=== PATIENT | female | born 1940 | race Caucasian/White ===

== ENCOUNTER 2019-02-19 15:51 | Outpatient (REF) | payer MEDICARE, MEDICAID, SELFPAY ==
[2019-02-19 20:31] LABS: Abs Immature Grans 0.01 k/cumm (0.0-0.09); Absolute Basophil Count 0.06 k/cumm (0.0-0.2); Absolute Eosinophil Count 0.38 k/cumm (0.0-0.7); Absolute Lymphocyte Count 2.52 k/cumm (1.2-3.4); Absolute Neutrophil Count 4.17 k/cumm (1.2-6.7); Basophils % 0.7; Eosinophils % 4.7; HCT 41.2 % (36.0-46.0); Immature Grans % 0.1; Lymphocytes % 31.3; Mean Corpuscular Hemoglobin 33.2 pg (27.0-33.0); Mean Corpuscular Volume 97.6 fL (80-95); Mean Platelet Volume 10.7 fL (8.0-11.0); Monocytes % 11.2; Platelet Count 247 x1000/uL (130-400); RBC 4.22 m/cumm (4.00-5.20); RBC Distribution Width 12.3 % (11.7-14.6); White Blood Cell Count 8.04 k/cumm (4.4-10.8)
[2019-02-19 20:46] LABS: Anion Gap 11.7 mmol/L (3-11); BUN 10 mg/dL (7-18); CO2 26.3 mmol/L (21.0-32.0); Calcium 8.4 mg/dL (8.5-10.1); Chloride 106 mmol/L (98-107); Glucose 98 mg/dL (70-100); Potassium 4.1 mmol/L (3.5-5.1); Sodium 144 mmol/L (136-145)
== END 2019-02-19 16:11 ==
LOC: NCHCN 15:51
PROVIDERS: Visit Provider Nurse Practitioner Family
DX: Z01.818 Encounter for other preprocedural examination (principal); Z01.812 Encounter for preprocedural laboratory examination
CPT/HCPCS: 80048; 85025

== ENCOUNTER 2019-05-12 16:45 | Outpatient (REF) | payer MEDICARE, MEDICAID, SELFPAY ==
[2019-05-12 20:42] LABS: HDL Cholesterol 53 mg/dL (40-60); LDL CHOLESTEROL 92 mg/dL (<100)
== END 2019-05-12 17:05 ==
LOC: NCHCN 16:45
PROVIDERS: Visit Provider Nurse Practitioner Family
DX: E78.5 Hyperlipidemia, unspecified (principal)
CPT/HCPCS: 83721; 83718

== ENCOUNTER 2019-11-06 14:43 | Outpatient (REF) | payer MEDICARE, MEDICAID, SELFPAY ==
[2019-11-06 19:23] LABS: Bacteria Few HPF (Negative); C & S Indicated? C&S Done As Ordered; Casts Negative LPF (Negative); Crystals Negative HPF (Negative); Epithelial Cells Negative HPF (Negative); Mucus Negative (Negative); Other Cells Negative (Negative); RBC Negative HPF (0-2)
== END 2019-11-06 15:03 ==
LOC: NCHCN 14:43
PROVIDERS: PCP Nurse Practitioner Family; Visit Provider Nurse Practitioner Family
DX: M54.9 Dorsalgia, unspecified (principal)
CPT/HCPCS: 81015; 87086

== ENCOUNTER 2019-11-26 16:51 | Outpatient (REF) | payer MEDICARE, MEDICAID, SELFPAY ==
[2019-11-26 19:00] LABS: Anion Gap 6.3 mmol/L (3-11); BUN 13 mg/dL (7-18); CO2 31.7 mmol/L (21.0-32.0); CREATININE 0.77 mg/dL (0.55-1.02); Calculated LDL 89 mg/dL (<100); Chloride 103 mmol/L (98-107); Cholesterol 180 mg/dL (<200); Glucose 123 mg/dL (74-106); HDL Cholesterol 61 mg/dL (40-60); Potassium 4.2 mmol/L (3.5-5.1); Sodium 141 mmol/L (136-145); Triglyceride 153 mg/dL (<150)
[2019-11-26 19:27] LABS: Creatine Kinase 99 U/L (26-192)
[2019-11-26 19:40] LABS: HCT 40.7 % (36.0-46.0); HGB 13.7 g/dL (12.0-15.5); Mean Corp. HGB Concentration 33.7 g/dL (32.0-36.0); Mean Corpuscular Hemoglobin 33.3 pg (27.0-33.0); Mean Platelet Volume 10.2 fL (8.0-11.0); Platelet Count 323 x1000/uL (130-400); RBC 4.11 m/cumm (4.00-5.20); RBC Distribution Width 13.4 % (11.7-14.6); White Blood Cell Count 8.92 k/cumm (4.4-10.8)
== END 2019-11-26 17:11 ==
LOC: NCHCN 16:51
PROVIDERS: PCP Nurse Practitioner Family; Visit Provider Nurse Practitioner Family
DX: I10 Essential (primary) hypertension (principal); E78.5 Hyperlipidemia, unspecified; J44.9 Chronic obstructive pulmonary disease, unspecified
CPT/HCPCS: 80048; 80061; 82550; 85027

== ENCOUNTER → 2019-12-29 09:01 | Outpatient (BNVA) | payer MEDICARE, MEDICAID, SELFPAY | PROVIDERS: PCP Nurse Practitioner Family; Referring Provider Nurse Practitioner Family; Visit Provider Student in an Organized Health Care Education/Training Program | DX: M20.12 Hallux valgus (acquired), left foot (principal); L84 Corns and callosities; I10 Essential (primary) hypertension; J44.9 Chronic obstructive pulmonary disease, unspecified | CPT/HCPCS: 11055; 99213 ==

== ENCOUNTER 2020-01-12 16:52 | Outpatient (REF) | payer MEDICARE, MEDICAID, SELFPAY ==
[2020-01-12 20:23] LABS: Iron 53 ug/dL (50-170)
[2020-01-12 20:36] LABS: Ferritin 87 ng/mL (8-252); TSH (W/Ref FT4) 0.45 uIU/mL (0.36-3.74)
== END 2020-01-12 17:12 ==
LOC: NCHCN 16:52
PROVIDERS: PCP Nurse Practitioner Family; Visit Provider Nurse Practitioner Family
DX: I10 Essential (primary) hypertension (principal); L65.9 Nonscarring hair loss, unspecified; M20.10 Hallux valgus (acquired), unspecified foot
CPT/HCPCS: 82728; 83540; 84443

== ENCOUNTER 2020-01-26 09:19 | Outpatient (CLI) | payer MEDICARE, MEDICAID, SELFPAY ==
--- NOTE | 2020-01-26 08:45 | DI.RAD_ITS ---
EXAM: XR KNEE RT 3V AP,LAT,CLARENCE CLINICAL HISTORY: f/u R TKA. TECHNIQUE: 2D digital imaging was performed. COMPARISON: CR RIGHT KNEE 3 VIEWS from 04/20/2016 CR CHEST 2 VIEWS PA,LAT from 07/26/2016 FINDINGS: There are stable postsurgical changes of a right total knee replacement. No lucencies are seen in or about the orthopedic hardware. The bones are intact. The soft tissues are unremarkable. Vascular clips are seen in the lower thigh. IMPRESSION: Stable right TKR. DATA REPOSITORY: RADIATION DOSE DELIVERED:
--- NOTE | 2020-01-26 08:45 | DI.RAD_ITS ---
EXAM: XR KNEE LT 3V AP,LAT,CLARENCE CLINICAL HISTORY: eval L knee. TECHNIQUE: 2D digital imaging was performed. COMPARISON: CR XR KNEE RT 3V AP,LAT,CLARENCE from 01/26/2020 FINDINGS: In the medial femoral tibial joint, moderately severe degenerative changes are seen characterized by joint space narrowing and marginal osteophytes. Osteophytes are seen in the lateral femoral tibial j oint space and the patellofemoral joint. There is an enthesophyte at the superior patella. The bone s appear normally mineralized and are intact. No significant joint effusion is seen. IMPRESSION: Moderately severe osteoarthritis of the left knee. DATA REPOSITORY: RADIATION DOSE DELIVERED:
== END 2020-01-26 09:39 ==
PROVIDERS: PCP Nurse Practitioner Family; Referring Provider Nurse Practitioner Family; Visit Provider Student in an Organized Health Care Education/Training Program
DX: M17.0 Bilateral primary osteoarthritis of knee; T84.84XD Pain due to internal orthopedic prosthetic devices, implants and grafts, subsequent encounter; Z96.651 Presence of right artificial knee joint; J44.9 Chronic obstructive pulmonary disease, unspecified; I10 Essential (primary) hypertension
CPT/HCPCS: 73562; 99214

== ENCOUNTER 2020-02-23 10:43 | Outpatient (CLI) | payer MEDICARE, MEDICAID, SELFPAY ==
--- NOTE | 2020-02-23 16:15 | DI.RAD_ITS ---
EXAM: XR CHEST 2V PA LATERAL CLINICAL HISTORY: COUGH PRODUCTIVE OF CLEAR SPUTUM R05, R/O PNEUMONIA, WHEEZING AND RHONCHI TECHNIQUE: 2D digital imaging was performed. COMPARISON: No exams were available for comparison FINDINGS: The heart size is normal. The aorta is mildly tortuous and shows calcification. There is mild biapi mimi pleural scarring. There are mild underlying fibrotic changes. No infiltrate, effusion or pulmon bel edema is seen. There are degenerative disc changes in the thoracic spine. IMPRESSION: No acute abnormality.
== END 2020-02-23 11:03 ==
PROVIDERS: PCP Nurse Practitioner Family; Visit Provider Nurse Practitioner Family
DX: R05 Cough (principal); R06.2 Wheezing
CPT/HCPCS: 71046

== ENCOUNTER 2020-02-23 14:44 | Outpatient (REF) | payer MEDICARE, MEDICAID, SELFPAY ==
[2020-02-26 22:22] LABS: SARS-CoV-2 RNA Undetected (Undetected); SARS-CoV-2 Specimen Source Nasopharynx
== END 2020-02-23 15:04 ==
LOC: NCHCN 14:44
PROVIDERS: PCP Nurse Practitioner Family; Visit Provider Nurse Practitioner Family
DX: R05 Cough (principal)
CPT/HCPCS: U0003

== ENCOUNTER 2020-04-20 12:15 | Outpatient (CLI) | payer MEDICARE, MEDICAID, SELFPAY ==
--- NOTE | 2020-04-20 13:18 | DI.RAD_ITS ---
EXAM: XR HIP RT COMPLETE AP PELVIS INDICATION: RT HIP PAIN M25.551, HX HIP REPLACEMENT, HX RT THIGH/GROIN MELANOMA, R/O. COMPARISON: CR RT HIP COMPLETE AP PELVIS from 02/03/[address] PELVIC WO from 04/20/2020 TECHNIQUE: 2D digital imaging was performed. FINDINGS: There are nondisplaced fractures of both the right superior and inferior pubic rami. Inferior pubic ramus appears fractured in two locations. There are bilateral hip prostheses which are unremarkable and unchanged previous exam. SI joints show degenerative changes. There are degenerative changes at the pubic symphysis. IMPRESSION: Nondisplaced fractures of the superior and inferior pubic rami. DATA REPOSITORY: RADIATION DOSE DELIVERED:
--- NOTE | 2020-04-20 13:20 | DI.CT_ITS ---
EXAM: CT PELVIC WO CLINICAL HISTORY: RT HIP PAIN M25.551, RT PUBIC BONE PAIN, RT GROIN PAIN X 6 WEEKS, HX HIP REPLACEM ENT, HX RT THIGH/GROIN MELANOMA, R/O ISSUE WITH HIP PROSTHESIS AND RECURRENCE OF MALIGNANT PROCESS. TECHNIQUE: Imaging Protocol: Axial computed tomography images with coronal and sagittal reformatted images were created and reviewed. CONTRAST MATERIAL: Noncontrast COMPARISON: CR RT HIP COMPLETE AP PELVIS from 02/03/2014 FINDINGS: There are bilateral hip prostheses, which create streak artifact. There is no evidence of hip disloc ation. There is no periprosthetic fracture. There are subacute-appearing fractures of the right sup erior and inferior pubic rami. There are 2 fractures involving the inferior right pubic ramus. Ther e is callus formation around the fractures. The fractures are nondisplaced. There is mild deformity of the pubic symphysis, which appears unchanged from the previous plain films. Degenerative changes are seen of the SI joints. Degenerative disc changes are seen in the lower lumbar spine. The bones appear osteopenic. There are surgical clips in the right groin region. There is no evidence of a h ernia. The bladder and portions of the bowel are obscured by artifact. Diverticulosis is noted. Th e aorta is calcified but normal in diameter. IMPRESSION: Subacute-appearing nondisplaced fractures of the right superior and inferior pubic rami. RADIATION DOSE DELIVERED: 442.45mGy.cmTotal DLP DATA REPOSITORY: All CT scans at this facility are submitted to the National Radiology Data Registry (NRDR) Dose Index Registry (DIR) with the [employer] (ACR). RADIATION OPTIMIZATION: All CT scans at this facility use at least one of these dose optimization te chniques: automated exposure control; mA and/or kV adjustment per patient size (includes targeted exa ms where dose is matched to clinical indication); or iterative reconstruction.
== END 2020-04-20 12:35 ==
PROVIDERS: PCP Nurse Practitioner Family; Visit Provider Nurse Practitioner Family
DX: S32.591A Other specified fracture of right pubis, initial encounter for closed fracture (principal); M25.551 Pain in right hip; Z96.643 Presence of artificial hip joint, bilateral
CPT/HCPCS: 72192; 73502

== ENCOUNTER 2020-05-21 14:17 | Emergency (ER) | payer MEDICARE, MEDICAID, SELFPAY ==
[2020-05-21 14:16] VITALS: BP 171/78; PULSE 94; RESP 18; TEMP 37; O2SAT 95
--- NOTE | 2020-05-21 14:38 | ED.GENADUL_ITS ---
Discharge Plan Disposition Patient Disposition: HOME Condition: Stable Discharge Details Clinical Impression: Forehead laceration Primary Care Provider: Hannah Villatoro ED Provider: Eagle Silva Home Meds and New Rx's Prescriptions: Continued aspirin 162.5 mg capsule,extended release 24hr 162.5 mg PO DAILY Qty: 90 RF: 0 atorvastatin 40 mg tablet 20 mg PO DAILY Qty: 90 RF: 4 albuterol sulfate 2.5 MG/3 ML solution for nebulization 2.5 mg Inhalation Q4H PRN Qty: 100 RF: 2 Breo Ellipta 100-25 mcg/dose blister with device 1 inh IH DAILY Qty: 28 RF: 6 pantoprazole 20 mg tablet,delayed release (DR/EC) 20 mg PO DAILY Qty: 30 RF: 11 ramipril [Altace] 10 mg capsule 10 mg PO BID Qty: 180 RF: 4 Discharge Instructions Instructions: Facial Laceration (ED) Additional Instructions: return in 7 days for evaluation for suture removal if severe worsening pain, spreading redness or yellow/white discharge return to the emergency department Medical Decision Making 79 yo female comes in after she was walking out of a bakery and states there is a part that goes from dirt to concrete with a small step up and she did not see it, hit it with her left foot causing her to fall forward. Denies loc but did hit head and has 2cm v shaped laceration to the left forehead. Also has a 2cm skin tear of the elbow. Has no pain in the feet with full range of motion and no tenderness, full rom of the elbow without pain and has no head pain with no midline c spine pain. I recommended head and c spine ct but she declind and has capacity to make her own decisions and understands risks of missing tbi and c spine injury including and disability and still declines CT. Is willing to allow be to close forehead laceration with sutures closed with 3 sutures without complications, will d/c home with return precautions, still declines head/cspine ct Differential Diagnosis Differential Diagnosis: laceration, abrasion, tbi HPI General Mode of arrival: ambulatory (with ems walked in) . Date/Time Provider Initiated Documentation: 05/21/20 14:28 . Limitations to Documentation: no limitations . Information obtained by: patient . History of Present Illness 79 year old F presents to the emergency department with the chief complaint of head laceration, described as moderate, Patient started experiencing this hour(s) (1) and it has been constant. No relieving factors improve symptom(s), No exacerbating factors reported . Patient did receive the following treatments prior to arrival, none Related Data Home Medications Medication Instructions Recorded Confirmed albuterol sulfate 2.5 mg INHALATION Q4H PRN #100 vial 02/05/17 05/21/20 fluticasone furoate 100 1 inh IH DAILY #28 each 05/14/18 05/21/20 mcg-vilanterol 25 mcg/dose inhalation powder pantoprazole 20 mg tablet,delayed 20 mg PO DAILY #30 tab-cap 08/12/18 05/21/20 release ramipril 10 mg capsule 10 mg PO BID #180 cap 08/12/18 05/21/20 atorvastatin 40 mg tablet 20 mg PO DAILY #90 tab-cap 11/22/18 05/21/20 aspirin 162.5 mg capsule,extended 162.5 mg PO DAILY #90 cap 01/20/20 05/21/20 release 24 hr Previous Rx's Medication Instructions Recorded fluticasone furoate 100 1 inh IH DAILY #28 each 05/14/18 mcg-vilanterol 25 mcg/dose inhalation powder pantoprazole 20 mg tablet,delayed 20 mg PO DAILY #30 tab-cap 08/12/18 release ramipril 10 mg capsule 10 mg PO BID #180 cap 08/12/18 atorvastatin 40 mg tablet 20 mg PO DAILY #90 tab-cap 11/22/18 aspirin 162.5 mg capsule,extended 162.5 mg PO DAILY #90 cap 01/20/20 release 24 hr Allergies Allergy/AdvReac Type Severity Reaction Status Date / Time Sulfa (Sulfonamide Allergy Intermediate HIVES Unverified 05/21/20 14:23 Antibiotics) amoxicillin trihydrate AdvReac Intermediate Diarrhea Unverified 05/21/20 14:23 [From Augmentin] potassium clavulanate AdvReac Intermediate Diarrhea Unverified 05/21/20 14:23 [From Augmentin] General Stated Complaint: Headache [place]: 3 Review of Systems All systems reviewed & are unremarkable except as noted in HPI and below Constitutional Constitutional: Denies chills and Denies fever(s) Cardiovascular Cardiovascular: Denies chest pain and Denies dyspnea Respiratory Respiratory: Denies cough and Denies dyspnea Gastrointestinal Gastrointestinal: Denies abdominal pain, Denies nausea and Denies vomiting Genitourinary Genitourinary: Denies dysuria Musculoskeletal Musculoskeletal: Denies joint swelling Integumentary/Breasts Skin/Breast: Denies rash [facility] Medical History Arthritis pain Cataracts, bilateral surgery 2018 on both COPD (chronic obstructive pulmonary disease) Hypertension Lichen simplex Low iron 53 in November 2019; clinically low is <50 on replacement per PCP Lung nodule Melanoma Osteopenia Palliative care patient SCC (squamous cell carcinoma), arm poorly differentiated; right arm; followed by Dr Rashaun Ramirez 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 Son No problems noted. Son No problems noted. Mother , age 52 from cerebral hemorrhage Hypertension Cerebral hemorrhage Father , age 93 from complications of alcoholism Alcohol abuse Social History Smoking/Tobacco Use Status: Former Tobacco Use Tobacco: How many years used: 57 Second Hand Exposure: Yes Smoking risk assessment performed?: Yes Alcohol Intake: never Drug use: Never Adopted: No Caregiver/Support person: No Foster care: No Household members: friend(s) Housing: house Number of Children: 3 number of grandchildren: 6 Communication Needs: Corrective Lenses Education Level: middle school Do you need help understanding health information?: Often 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, 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 Pets and animals: Yes Pets and animals: cat(s) Sexually active: No Current gender identity: female What is your relationship status?: How often do you talk on the phone with friends or family?: once per week How often do you get together with friends or relatives?: once per week Panel score (0-1 are the most socially isolated patients): 0 What type of physical activity do you participate in: walking Frequency: daily Special gaurang needs: No Agree to transfusion: Yes Seatbelt use: always Do you feel safe at home: Yes Do you feel safe in your relationship?: Yes Additional Social history: lives with roommate x 30 years; he smokes 3 ppd inside. she has asked him to smoke outside but he gets angry. the house belongs to him. She did get approved for food stamps; getting 133$/month. Helping a lot. Has 2 pet cats who are like family; one has asthma and gets nebulizer treatment each am. Exam Const General: no acute distress Orientation: alert HENMT Head: no palpable skull fracture Ears: external ears normal General nose exam: external nose normal Mouth: moist mucous membranes Eyes General: appearance normal, both eyes and all related structures Neck Neck: normal visual inspection Resp Effort & Inspection: normal respiratory effort and able to speak in complete sentences Cardio Rate: regular rate Skin General skin exam: no rashes or lesions noted Neuro General: patient alert and patient oriented x3 Extrem General: normal to inspection Psych Mental Status: mental status grossly normal Course Vital Signs Vital signs: Vital Signs Temperature 37 C 05/21/20 14:16 Pulse 94 H 05/21/20 14:16 Respiratory Rate 18 05/21/20 14:16 Blood Pressure 171/78 H 05/21/20 14:16 Pulse Oximetry 95 05/21/20 14:16 Temperature 37 C 05/21/20 14:16 Temperature Source Skin 05/21/20 14:16 Pulse 94 H 05/21/20 14:16 Respiratory Rate 18 05/21/20 14:16 Respiratory Effort 05/21/20 14:26 Blood Pressure 171/78 H 05/21/20 14:16 Blood Pressure Position Sitting 05/21/20 14:16 Pulse Oximetry 95 05/21/20 14:16 Oxygen Delivery Method Room Air 05/21/20 14:16 Oxygen Flow Rate 0 05/21/20 14:16 Pain Level 0 05/21/20 14:16 Comment 05/21/20 14:16 Procedures Laceration Laceration 1: Site: face Side (If applicable): left Size (cm): 2 Description: other (V shaped) Depth: simple, single layer Local Anesthetic: Lidocaine 1% and with Epi Amount of anesthesia used (mL): 5 Pre-repair: wound explored and irrigated extensively Skin layer closed with: vicryl Size (cm): 5-0 Number of sutures: 3
== END 2020-05-21 15:03 | disposition home or self-care (01) ==
LOC: ER 05-22 06:42
PROVIDERS: Emergency Provider Emergency Medicine; PCP Nurse Practitioner Family
DX: S01.81XA Laceration without foreign body of other part of head, initial encounter (principal); W10.1XXA Fall (on)(from) sidewalk curb, initial encounter; I10 Essential (primary) hypertension; J44.9 Chronic obstructive pulmonary disease, unspecified; Z87.891 Personal history of nicotine dependence
CPT/HCPCS: 12011

== ENCOUNTER 2020-06-01 01:41 | Outpatient (CLI) | payer MEDICARE, MEDICAID, SELFPAY ==
--- NOTE | 2020-06-01 | DI.DEXA_ITS ---
EXAM: XR DEXA BONE DENSITY W/WO SOCORRO CLINICAL HISTORY: SCREENING FOR OSTEOPOROSIS IN POSTMENOPAUSAL WOMAN,Z78.0 TECHNIQUE: COMPARISON: CR from 01/07/2014 FINDINGS: DEXA scan was performed according to the usual protocol. Please see the accompanying data sheets. F indings for lumbar spine scanning are T-score -2.4. Findings for left forearm scanning are T-score - 2.6. The lateral vertebral scanogram shows possible deformity of what may be T12 or L1. Additional evalua tion with radiographs of the lumbar spine suggested. IMPRESSION: Findings consistent with osteoporosis. Possible thoracolumbar junction vertebral compression fracture, poorly visualized. Correlation with lumbosacral spine radiographs suggested. RADIATION DOSE DELIVERED: Total DLP
--- NOTE | 2020-06-01 | DI.CT_ITS ---
EXAM: CT PELVIC WO CLINICAL HISTORY: LT GROIN PAIN, R10.32, ? PUBIC BONE FX, H/O RT PUBIC BONE FX TECHNIQUE: COMPARISON: CT CT PELVIC WO from 04/20/2020 FINDINGS: CT examination of pelvis was performed. Examination is compared with prior examination of April 20. Previous examination showed right superior and inferior pubic ramus fractures. These are unchan ged in alignment in comparison previous examination and there is evidence partial at each of these si aria, 1 involving the superior ramus and 2 of the inferior ramus. There is a new fracture of the supe rior pubic ramus the left. There is no periprosthetic fracture seen in this patient with bilateral h ip replacements. There is mild deformity of the cysts sacral ala bilaterally with heterogeneous bone density. Finding s may represent old or healing insufficiency fractures. These findings appear unchanged from the delaney or study. Patient reportedly has a history of melanoma. No gross inguinal or pelvic adenopathy identified. No convincing aggressive bony metastatic lesions but metastasis would be difficult to exclude due to th e very patchy demineralization of bones. IMPRESSION: Healing right pelvic fractures involving inferior and superior pubic rami. New left superior pubic ramus fracture. Additional findings as described above. RADIATION DOSE DELIVERED: 357.94mGy.cm Total DLP
== END 2020-06-01 02:01 ==
PROVIDERS: PCP Nurse Practitioner Family; Visit Provider Nurse Practitioner Family
DX: Z78.0 Asymptomatic menopausal state (principal); M81.0 Age-related osteoporosis without current pathological fracture; S32.592A Other specified fracture of left pubis, initial encounter for closed fracture; R10.32 Left lower quadrant pain
CPT/HCPCS: 77080; 72192

== ENCOUNTER 2020-07-19 18:53 | Outpatient (REF) | payer MEDICARE, MEDICAID, SELFPAY ==
[2020-07-19 15:38] LABS: Anion Gap 8.6 mmol/L (3-11); BUN 12 mg/dL (7-18); CO2 26.4 mmol/L (21.0-32.0); CREATININE 0.55 mg/dL (0.55-1.02); Calcium 8.3 mg/dL (8.5-10.1); Chloride 103 mmol/L (98-107); Glucose 103 mg/dL (74-106); Magnesium 1.7 mg/dL (1.8-2.4); PHOSPHORUS 3.5 mg/dL (2.6-4.7); Sodium 138 mmol/L (136-145)
[2020-07-19 16:22] LABS: Vitamin D 25 Total 40.1 ng/ml (30-100)
== END 2020-07-19 19:13 ==
LOC: NCHCN 18:53
PROVIDERS: PCP Nurse Practitioner Family; Visit Provider Nurse Practitioner Family
DX: Z02.89 Encounter for other administrative examinations (principal); M81.0 Age-related osteoporosis without current pathological fracture
CPT/HCPCS: 80048; 82306; 83735; 84100

== ENCOUNTER 2020-10-20 09:33 | Outpatient (CLI) | payer MEDICARE, MEDICAID, SELFPAY ==
--- NOTE | 2020-10-20 | DI.CT_ITS ---
EXAM: CT CHEST W CLINICAL HISTORY: SUBACUTE COUGH HX OF MELANOMA, ? NODULAR OPACITY. TECHNIQUE: Multi planar reconstructions were performed. CONTRAST MATERIAL: Omnipaque 350; 70 cc COMPARISON: No exams were available for comparison FINDINGS: CHEST: LUNGS: There are no significant focal findings in the right lung. Benign biapical scarring is noted. In the left upper lobe there is a nodular infiltrate measuring 1.4 x 1.3 cm located adjacent to the aortic arch in the apico-segment of the left upper lobe. No other infiltrates with the exception of mild benign-appearing increased markings in the anterior basal segment of the left lower lobe. Ther e is also a 2 millimeter benign-appearing pleural based density in the lateral aspect of left lower l obe. There are no pleural effusions on either side. No significant focal findings in the trachea and main stem bronchi. MEDIASTINUM: There is no hilar nor mediastinal adenopathy. No adenopathy in the aortopulmonic window. No subcarinal adenopathy. No supraclavicular adenopathy. No apical adenopathy. CARDIAC: Heart size is normal. There is no pericardial effusion.Caliber of the thoracic aorta is wit hin normal limits. VISUALIZED UPPER ABDOMEN:There are no significant adrenal masses. OSSEOUS: No significant osseous lesions.. IMPRESSION: 1. Main finding on this study is a 14 x 13 millimeter nodular infiltrate in the apical posterior segm ent of the left upper lobe. Close follow-up recommended to rule out neoplasm. Other findings as abo ve. 2. There are no pleural effusions and there is no intrathoracic adenopathy. RADIATION DOSE DELIVERED: 420.63mGy.cm Total DLP DATA REPOSITORY: All CT scans at this facility are submitted to the National Radiology Data Registry (NRDR) Dose Index Registry (DIR) with the [employer] (ACR). RADIATION OPTIMIZATION: All CT scans at this facility use at least one of these dose optimization te chniques: automated exposure control; mA and/or kV adjustment per patient size (includes targeted exa ms where dose is matched to clinical indication); or iterative reconstruction.
[2020-10-20 11:20] LABS: CREATININE 0.7 mg/dL (0.55-1.02)
[2020-10-20] MEDS: Normal Saline - Diluent 50 ML VIAL IV (11:51)
== END 2020-10-20 09:53 ==
PROVIDERS: PCP Nurse Practitioner Family; Visit Provider Nurse Practitioner Family
DX: R05 Cough (principal); J98.4 Other disorders of lung; R91.8 Other nonspecific abnormal finding of lung field
CPT/HCPCS: 71260; 82565

== ENCOUNTER 2020-10-20 10:52 | Outpatient (REF) | payer MEDICARE, MEDICAID, SELFPAY ==
[2020-10-20 15:04] LABS: Abs Immature Grans 0.03 10^3/uL (0.0-0.06); Absolute Basophil Count 0.07 10^3/uL (0.0-0.2); Absolute Eosinophil Count 0.22 10^3/uL (0.0-0.7); Absolute Monocyte Count 0.89 10^3/uL (0.1-0.8); Absolute Neutrophil Count 4.68 10^3/uL (1.2-6.7); Basophils % 0.9; Eosinophils % 2.8; HGB 12.9 g/dL (11.2-15.7); Immature Grans % 0.4; Lymphocytes % 24.4; MCH 32.4 pg (27.0-33.0); MCHC 33.1 % (32.0-36.0); MPV 10.4 fL (8.0-11.0); Monocytes % 11.4; Neutrophils % 60.1; Nucleated RBC 0 %; Platelet Count 276 10^3/uL (130-400); RBC 3.98 10^6/uL (3.93-5.22); RDW 12.7 % (11.7-14.6); RDW-SD 45.4 fL; WBC 7.79 10^3/uL (4.4-10.8)
[2020-10-20 15:05] LABS: BUN 16 mg/dL (7-18); CREATININE 0.7 mg/dL (0.55-1.02); Calcium 9.2 mg/dL (8.5-10.1); Chloride 107 mmol/L (98-107); Glucose 103 mg/dL (74-106); Potassium 4.5 mmol/L (3.5-5.1); Sodium 143 mmol/L (136-145)
[2020-10-21 15:32] LABS: COVID-19 RT-PCR UVMMC Result Negative (Negative)
== END 2020-10-20 10:53 | disposition home or self-care (01) ==
LOC: NCHCN 10:52
PROVIDERS: PCP Nurse Practitioner Family; Visit Provider Nurse Practitioner Family
DX: R05 Cough (principal); Z20.822 Contact with and (suspected) exposure to COVID-19
CPT/HCPCS: 80048; U0003; U0005; 85025

== ENCOUNTER 2020-11-18 11:42 | Outpatient (CLI) | payer MEDICARE, MEDICAID, SELFPAY ==
--- NOTE | 2020-11-18 14:11 | DI.RAD_ITS ---
Exam(s) XR CHEST 2V PA LATERAL EXAM: XR CHEST 2V PA LATERAL CLINICAL HISTORY: COUGH, PERSISTENT, RHONCHI. TECHNIQUE: 2D digital imaging was performed. COMPARISON: Prior chest x-ray 70 20 FINDINGS: Heart size normal mediastinum is not widened. There is a noncalcified nodular density over the lower 3rd right lung field measuring approximately 1.5 x 1.2 cm. Not previously present. Better seen on the frontal than lateral views. No other focal pulmonary findings and no pleural effusions. IMPRESSION: 15 x 12 millimeter right lung nodular density. Follow-up CT scan recommended DATA REPOSITORY: RADIATION DOSE DELIVERED:
== END 2020-11-18 12:02 ==
PROVIDERS: PCP Nurse Practitioner Family; Visit Provider Nurse Practitioner Family
DX: R05 Cough (principal); R91.1 Solitary pulmonary nodule; R06.89 Other abnormalities of breathing
CPT/HCPCS: 71046

== ENCOUNTER 2020-11-24 01:01 | Outpatient (CLI) | payer MEDICARE, MEDICAID, SELFPAY ==
--- NOTE | 2020-11-24 | DI.CT_ITS ---
Exam(s) CT CHEST WO EXAM: CT CHEST WO CLINICAL HISTORY: COUGH, R05,F/U ABNL CHEST XR,R91.8,NEW RT NODULAR DENSITY. TECHNIQUE: Multi planar reconstructions were performed. CONTRAST MATERIAL: None COMPARISON: CT CT CHEST W from 10/20/2020 FINDINGS: CHEST: LUNGS: Previously described nodular infiltrate in the apical posterior segment of the left upper lobe spine the aortic arch is unchanged from the CT scan performed 1 month ago.. There are no other sign ificant focal findings in the left lung nor pleural effusion. In the opposite-right lung there are now a few subtle areas of ground-glass nodular infiltrate which were not previously present, these in the right middle lobe and right lower lobe adjacent to the annie r fissure. Also not associated with pleural fluid. The no significant focal findings in the trachea and mainstem bronchi. No prominent mucous therein. There is no bronchiectasis. MEDIASTINUM: There is no obvious hilar nor mediastinal adenopathy. Visualized thyroid unremarkable.No obvious axillary adenopathy CARDIAC: Heart size is normal. There is mild thickening of the pericardium but no large pericardial effusion.Thoracic aorta is calcified upper normal diameter. Coronary artery calcification is noted. VISUALIZED UPPER ABDOMEN: OSSEOUS: No significant osseous lesions.. IMPRESSION: 1. The previously described nodular infiltrate in the left upper lobe appears unchanged from the CT s can of October 20, 2020. No additional left lung findings. 2. However, in the opposite-right lung there are now a few subtle areas of ground-glass nodular infil trate which were not present on the CT scan 1 month ago. Recommend testing for Covid-19. This also requires follow-up. No pleural effusions on either side. 3. No obvious intrathoracic adenopathy. RADIATION DOSE DELIVERED: 366.93mGy.cm Total DLP DATA REPOSITORY: All CT scans at this facility are submitted to the National Radiology Data Registry (NRDR) Dose Index Registry (DIR) with the [employer] (ACR). RADIATION OPTIMIZATION: All CT scans at this facility use at least one of these dose optimization te chniques: automated exposure control; mA and/or kV adjustment per patient size (includes targeted exa ms where dose is matched to clinical indication); or iterative reconstruction.
== END 2020-11-24 01:21 ==
PROVIDERS: PCP Nurse Practitioner Family; Visit Provider Nurse Practitioner Family
DX: R05 Cough (principal); R91.1 Solitary pulmonary nodule; J98.4 Other disorders of lung
CPT/HCPCS: 71250

== ENCOUNTER 2021-01-26 12:11 | Outpatient (REF) | payer MEDICARE, MEDICAID, SELFPAY ==
[2021-01-26 19:57] LABS: Abs Immature Grans 0.02 10^3/uL (0.0-0.06); Absolute Eosinophil Count 0.17 10^3/uL (0.0-0.7); Absolute Lymphocyte Count 1.85 10^3/uL (1.2-3.4); Absolute Monocyte Count 0.82 10^3/uL (0.1-0.8); Absolute Neutrophil Count 5.39 10^3/uL (1.2-6.7); Basophils % 1.2; HCT 40.6 % (36.0-46.0); HGB 13.4 g/dL (11.2-15.7); Immature Grans % 0.2; Lymphocytes % 22.2; MCH 33.4 pg (27.0-33.0); MCV 101.2 fL (80-95); Monocytes % 9.8; Neutrophils % 64.6; Nucleated RBC 0 %; RBC 4.01 10^6/uL (3.93-5.22); RDW 12.3 % (11.7-14.6); RDW-SD 46.5 fL; WBC 8.35 10^3/uL (4.4-10.8)
[2021-01-26 20:17] LABS: Anion Gap 7.3 mmol/L (3-11); BUN 11 mg/dL (7-18); CO2 28.7 mmol/L (21.0-32.0); CREATININE 0.7 mg/dL (0.55-1.02); Calcium 8.9 mg/dL (8.5-10.1); Chloride 106 mmol/L (98-107); Glucose 96 mg/dL (74-106); NT-proBNP 274 pg/mL (<300); Potassium 4.5 mmol/L (3.5-5.1); Sodium 142 mmol/L (136-145)
[2021-01-26 20:43] LABS: Diff Comment Diff Reviewed; RBC Morphology Normal
[2021-01-28 13:57] LABS: COVID-19 RT-PCR UVMMC Result Negative (Negative)
== END 2021-01-26 12:12 | disposition home or self-care (01) ==
LOC: NCHCN 12:11
PROVIDERS: PCP Nurse Practitioner Family; Visit Provider Nurse Practitioner Family
DX: R06.02 Shortness of breath (principal); R22.42 Localized swelling, mass and lump, left lower limb; R05 Cough; Z20.822 Contact with and (suspected) exposure to COVID-19
CPT/HCPCS: 80048; U0003; 83880; 85025

== ENCOUNTER 2021-01-27 01:15 | Outpatient (CLI) | payer MEDICARE, MEDICAID, SELFPAY ==
--- NOTE | 2021-01-27 | DI.US_ITS ---
Exam(s) US LOWER EXTREMITY VENOUS LT EXAM: US LOWER EXTREMITY VENOUS LT CLINICAL HISTORY: SWELLING LT LEG, R22.42, ? DVT,INCREASED CALF SIZE, KNEE PAIN, H/O CA TECHNIQUE: Grayscale, color, and doppler imaging of the deep venous system of the left lower extremi ty was performed. COMPARISON: No exams were available for comparison FINDINGS: There is no evidence of intraluminal thrombus and there is normal compression and augmentation demons trated within the common femoral vein, femoral vein, and popliteal vein. In the ipsilateral calf the interrogated veins also exhibit normal compression/ augmentation properti es. The ipsilateral saphenofemoral junction is patent. IMPRESSION: 1. No evidence of DVT in the left lower extremity. 2. DATA REPOSITORY:
== END 2021-01-27 01:35 ==
PROVIDERS: PCP Nurse Practitioner Family; Visit Provider Nurse Practitioner Family
DX: R22.42 Localized swelling, mass and lump, left lower limb (principal)
CPT/HCPCS: 93971

== ENCOUNTER 2021-02-02 15:50 | Outpatient (CLI) | payer MEDICARE, MEDICAID, SELFPAY ==
--- NOTE | 2021-02-02 14:00 | DI.RAD_ITS ---
Exam(s) XR CHEST 2V PA LATERAL EXAM: XR CHEST 2V PA LATERAL CLINICAL HISTORY: COUGH, R05, NEG COVID 01/31/21. TECHNIQUE: 2D digital imaging was performed. COMPARISON: CR CHEST 2 VIEWS PA,LAT from 09/10/2008 CR CHEST 2 VIEWS PA,LAT from 09/10/2008 CR CHEST 2 VIEWS PA,LAT from 07/29/2011 CR CHEST 2 VIEWS PA,LAT from 09/19/2011 CR CHEST 2 VIEWS PA,LAT from 09/19/[address] CHEST W from 10/20/[address] CHEST W from 10/20/2020 CR XR CHEST 2V PA LATERAL from 11/18/2020 FINDINGS: In addition to the above chest x-rays, also reviewed CT scan of 10/20/2020 which revealed a 14 x 13 m illimeter nodule infiltrate in the apical posterior segment of the left upper lobe Heart size is normal. The mediastinum is not widened. There are bilateral nodular densities noted. In the apical posterior segment left upper lobe there i s nodular density against the aortic arch again noted. There are 2 nodular densities towards the rig ht lung base again noted. Also another nodular density in the mid-lower left lung. These may or may not be related to the ribs although they are projected over the rib cages. No pleural effusions. IMPRESSION: Bilateral findings as above.Recommend follow-up CT scan for more accurate comparison to the prior CT scan of 10/21/2019.. This would not need IV contrast. DATA REPOSITORY: RADIATION DOSE DELIVERED:
== END 2021-02-02 16:10 ==
PROVIDERS: PCP Nurse Practitioner Family; Visit Provider Nurse Practitioner Family
DX: R05 Cough (principal); R91.1 Solitary pulmonary nodule
CPT/HCPCS: 71046

== ENCOUNTER 2021-02-09 11:58 | Outpatient (REF) | payer MEDICARE, MEDICAID, SELFPAY | END 2021-02-09 11:59 | disposition home or self-care (01) | LOC: NCHCN 11:58 | PROVIDERS: PCP Nurse Practitioner Family; Visit Provider Nurse Practitioner Family | DX: R05 Cough (principal) | CPT/HCPCS: 87070; 87205 ==

== ENCOUNTER 2021-08-16 01:07 | Outpatient (CLI) | payer MEDICARE, MEDICAID, SELFPAY ==
--- NOTE | 2021-08-16 13:06 | DI.CT_ITS ---
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 TECHNIQUE: Imaging protocol: Axial computed tomography images were obtained and coronal and sagittal reformatted images were created and reviewed. COMPARISON: CT CT CHEST WO from 11/24/2020 FINDINGS: Tracheobronchial tree: Patent where visualized. Pulmonary parenchyma: The biapical scarring is stable. There is a stable 2 mm nodule in the right up per lobe. There is now near complete collapse of the right middle lobe. There has been interval inc rease in size of 2 adjacent nodules in the right lower lobe. The larger measures 0.6 cm. No focal c onsolidating infiltrates are present. Mediastinum and Huma: No dominant adenopathy or fluid collection. The esophagus is unremarkable. Thyroid gland: Unremarkable. Pleura: No effusion or pneumothorax. Heart: The heart is not dilated. Coronary artery calcifications are present. No pericardial effusion . Aorta: Thoracic aorta non-dilated. Atherosclerosis. Upper abdomen: Unremarkable. Lymph nodes: Within normal limits. Soft tissues: Unremarkable. Bones:Within normal limits for the patient's age. Old healed bilateral rib fractures are present. IMPRESSION: 1. Interval near complete collapse of the right middle lobe. The possibly of a central obstructing m ass cannot be excluded. Endobronchial obstruction or infection should also be considered. 2. Interval increase in size of 2 adjacent nodules in the right lower lobe. Metastasis should be con sidered. RADIATION DOSE DELIVERED: 454.41mGy.cm Total DLP 454.41mGy.cm Total DLP DATA REPOSITORY: All CT scans at this facility are submitted to the National Radiology Data Registry (NRDR) Dose Index Registry (DIR) with the [employer] ([employer]). RADIATION OPTIMIZATION: All CT scans at this facility use at least one of these dose optimization te chniques: automated exposure control; mA and/or kV adjustment per patient size (includes targeted exa ms where dose is matched to clinical indication); or iterative reconstruction.
== END 2021-08-16 01:27 ==
PROVIDERS: PCP Nurse Practitioner Family; Visit Provider Radiology Radiation Oncology
DX: C34.12 Malignant neoplasm of upper lobe, left bronchus or lung (principal); J98.4 Other disorders of lung; J98.11 Atelectasis
CPT/HCPCS: 71250

== ENCOUNTER 2021-09-05 02:10 | Outpatient (CLI) | payer MEDICARE, MEDICAID, SELFPAY ==
[2021-09-05 10:26] LABS: Source Nasal/Nares
[2021-09-05 16:21] LABS: COVID-19 PCR Negative (Negative)
== END 2021-09-05 02:11 | disposition home or self-care (01) ==
LOC: LBO 02:10
PROVIDERS: PCP Nurse Practitioner Family; Visit Provider Internal Medicine
DX: Z20.822 Contact with and (suspected) exposure to COVID-19 (principal); Z01.818 Encounter for other preprocedural examination
CPT/HCPCS: 87635; U0005